=== PATIENT | male | born 1980 | race Caucasian/White ===

== ENCOUNTER 2019-06-25 07:11 | Emergency (ER) | payer OTHER ==
[~2019-06-25] VITALS: Ht 175.3 cm; Wt 82.6 kg
[2019-06-25 07:22] VITALS: BP 140/89; Ht 175.3 cm; Wt 82.6 kg
== END 2019-06-25 08:02 | disposition home or self-care (01) ==
LOC: ED 07:11
DX: J32.9 Chronic sinusitis, unspecified (principal); K08.89 Other specified disorders of teeth and supporting structures; Z88.8 Allergy status to other drugs, medicaments and biological substances